=== PATIENT | female | born 1970 | race Caucasian/White ===

== ENCOUNTER 2021-01-17 00:23 | Emergency (ER) | payer OTHER ==
[2021-01-17] MEDS ORDERED: Iopamidol 370 76% 100 ML VIAL ONE (10:58)
== END 2021-01-17 01:30 | disposition home or self-care (01) ==
LOC: BURERS 00:23
DX: I87.8 Other specified disorders of veins (principal); M79.7 Fibromyalgia; J45.909 Unspecified asthma, uncomplicated; Z79.899 Other long term (current) drug therapy
CPT/HCPCS: 71260; Q9967